=== PATIENT | female | born 1995 | race Caucasian/White ===

== ENCOUNTER 2019-04-23 15:12 | Inpatient (IN) | payer BC, MEDICAID ==
[~2019-04-23] VITALS: Ht 157.5 cm; Wt 49.9 kg
[2019-04-23] MEDS ORDERED: ASPI-84 PO (15:23)
--- NOTE | 2019-04-23 15:30 | NUR ---
RECEVED PT [employer] by mother for elevated temp and lower and lower abdominale pain sterted on 04/19/19 temp 102f blood drow abd sent to lab ua sent to lab
[2019-04-23] MEDS ORDERED: IV NORMAL SALINE 1000 ML BAG IV ONE ×2 (15:45→17:30)
[2019-04-23] MEDS ORDERED: ONDANSETRON 4 MG/2 ML VIAL IV ONE ×2 (16:00→18:45)
[2019-04-23] MEDS ORDERED: MORPHINE SULFATE 4 MG/1 ML DISP.SYRIN IV ONE ×2 (16:00→18:45)
[2019-04-23 16:09] LABS: *BILIRUBIN,URIN NEGATIVE (NEGATIVE); *BLOOD, URINE 1+ (NEGATIVE); *CLARITY,URINE CLOUDY (CLEAR); *COLOR,URINE YELLOW (YELLOW); *KETONES,URINE NEGATIVE (NEGATIVE); *UROBILINOGEN,URINE 0.2 E.U./dl (NORMAL); BASOPHILS # (AUTO) 0.1 K/uL (0.0-8.0); BASOPHILS % (AUTO) 0.3 % (0.0-2.0); EOSINOPHILS % (AUTO) 0.2 % (0.0-7.0); HEMOGLOBIN 12.1 g/dL (10.9-14.3); LEUKOCYTE ESTERASE ,URINE 3+ (NEGATIVE); LYMPHOCYTES # (AUTO) 1.9 K/uL (20.0-40.0); LYMPHOCYTES % (AUTO) 11.1 % (20.5-51.5); MEAN CORPUSCULAR HEMOGLOBIN 29.7 uug (24.7-32.8); MEAN CORPUSCULAR HGB CONC 33 g/dL (32.3-35.6); MEAN CORPUSCULAR VOLUME 90.9 fL (75.5-95.3); MONOCYTES # (AUTO) 2.4 K/uL (2.0-10.0); NEUTROPHILS # (AUTO) 12.8 K/uL (1.8-8.9); NEUTROPHILS % (AUTO) 74.4 % (38.5-71.5); NITRITE, URINE POSITIVE (NEGATIVE); PH,URINE 6.5 (5.0-8.0); PLATELET COUNT (AUTO) 305 K/uL (179-408); RED BLOOD CELL COUNT(AUTO) 4.07 MIL/uL (3.63-4.92); UGLUCOSE NEGATIVE (NEGATIVE); WHITE BLOOD COUNT (AUTO) 17.1 K/uL (3.8-11.8)
[2019-04-23 16:12] LABS: *URINE HCG, QUAL NEGATIVE (NEGATIVE)
[2019-04-23 16:17] LABS: BACTERIA,URINE MANY /HPF (NONE SEEN); CREATININE 0.9 mg/dL (0.6-1.3); POTASSIUM 2.9 mmol/L (3.5-5.1); SQUAMOUS EPITHELIAL CELL,UR MANY /HPF (NONE SEEN); WBC,URINE 80-100 /HPF (0-3)
[2019-04-23 16:22] LABS: BILIRUBIN,DIRECT 0.1 mg/dL (0.0-0.2); BILIRUBIN,TOTAL 0.3 mg/dL (0.2-1.0); TOTAL PROTEIN, SERUM 7.2 g/dL (6.4-8.2)
--- NOTE | 2019-04-23 16:30 | NUR ---
c/o abdominal pain 11/16 morphin 4mg and zofran 4mg ivp given ivf ns infused and patent
[2019-04-23] MEDS ORDERED: MORPHINE SULFATE 4 MG/1 ML DISP.SYRIN ONE ×2 (16:34→19:11)
[2019-04-23] MEDS ORDERED: ONDANSETRON 4 MG/2 ML VIAL ONE ×2 (16:35→19:11)
[2019-04-23] MEDS ORDERED: CEFTRIAXONE 1 G in IV DEXTROSE 5% 50 ML IV ONE (16:45)
[2019-04-23] MEDS ORDERED: POTASSIUM BICARBONATE/CIT AC 25 MEQ TABLET.EFF PO ONE (17:15)
--- NOTE | 2019-04-23 17:30 | NUR ---
pt dx uti blood culture x 2 blood drow by lab rocephin 1 gm ivpb infused and patent tem 99.0f
[2019-04-23] MEDS ORDERED: CEFTRIAXONE /D5W 50ML IVPB **ER PYXIS IV ONE (17:38)
[2019-04-23] MEDS ORDERED: POTASSIUM BICARBONATE/CIT AC 25 MEQ TABLET.EFF ONE (17:46)
[2019-04-23] MEDS ORDERED: LEVOFLOXACIN 750 MG/D5W 150 ML PIGGYBACK IV ONE (18:00)
--- NOTE | 2019-04-23 18:30 | NUR ---
2 nd liter infused and patent
--- NOTE | 2019-04-23 18:30 | NUR ---
patient received from ER on [facility]. no signs of acute distress and v/s stable other then temperature. ID band on and belonging list completed. will continue admissions process and continue to monitor. Addendum: 04/24/19 at 0059 by ANANDA DOE RN correct time 2030
[2019-04-23] MEDS ORDERED: LEVOFLOXACIN 750MG/D5W 150 ML IV ONE (19:08)
--- NOTE | 2019-04-23 19:53 | NUR ---
report given to CATHLEEN Graff
--- NOTE | 2019-04-23 20:10 | NUR ---
patient transfered to [facility] floor via [facility] with RN, Souyma Sprague. patient alert and oriented and in stable condition.
[2019-04-23 20:22] VITALS: BP 106/62
[2019-04-23] MEDS ORDERED: Z GUARD REMEDY PASTE 57 GM TUBE TOP PRN (20:45)
[2019-04-23] MEDS ORDERED: ONDANSETRON 4 MG/2 ML VIAL IV PRN (20:45)
[2019-04-23] MEDS ORDERED: ACETAMINOPHEN 325 MG TABLET PO PRN (20:45)
[2019-04-23] MEDS ORDERED: MAGNESIUM HYDROXIDE 30 ML LIQUID UDC PO PRN (20:45)
[2019-04-23] MEDS ORDERED: ZOLPIDEM 5 MG TABLET PO PRN (20:45)
[2019-04-23] MEDS ORDERED: HYDROCODONE/APAP 5-325MG TABLET PO PRN (20:45)
[2019-04-23] MEDS ORDERED: IBUPROFEN 400 MG TABLET PO PRN (20:45)
[2019-04-23] MEDS ORDERED: TRAMADOL HCL 50 MG TABLET PO PRN (21:45)
[2019-04-23] MEDS: IV NS 1000 ML 1,000 ML IV PRN (21:48)
--- NOTE | 2019-04-23 21:48 | NUR ---
patient temperature at 100.2, administered tylenol. will f/u.
--- NOTE | 2019-04-23 22:20 | NUR ---
patient report that norco makes her nauseated. maxi placed new order for tramadol for pain management. will administer.
--- NOTE | 2019-04-23 22:48 | NUR ---
patient temperature decreasing and currently at 99.1 will continue to monitor and continue plan of care.
--- NOTE | 2019-04-23 23:35 | NUR ---
patient reported numbness, tingling, and burning sensation on bilateral feet due to her autoimmune disease. janette denton np ordered lidocaine patch for bilateral feet. will apply.
[2019-04-23] MEDS ORDERED: LIDOCAINE 5% PATCH TD SCH (23:45)
--- NOTE | 2019-04-23 23:48 | NUR ---
recheck patient temperature and it is at 98.0
[2019-04-24] MEDS ORDERED: LIDOCAINE 5% PATCH TD SCH
[2019-04-24 05:00] VITALS: BP 101/68
--- NOTE | 2019-04-24 05:23 | NUR ---
patient received in bed. no signs of acute distress noted and v/s stable at this time. c/o of insomnia and Ambien administered. c/o of pain and tramadol administered. tolerated well. afebrile at this time. will continue plan of care and endorse accordingly.
[2019-04-24] MEDS: IV NS 1000 ML 1,000 ML IV PRN (05:43)
--- NOTE | 2019-04-24 07:30 | NUR ---
Patient received in bed expressing dissatisfaction with not being able to speak to physician ; patient informed physician would come and do her rounds soon. Patient with no signs of distress; will continue to be monitored.
[2019-04-24 08:10] LABS: BASOPHILS % (AUTO) 0.2 % (0.0-2.0); EOSINOPHILS % (AUTO) 0.3 % (0.0-7.0); HEMATOCRIT 32.1 % (31.2-41.9); HEMOGLOBIN 10.5 g/dL (10.9-14.3); LYMPHOCYTES # (AUTO) 1.2 K/uL (20.0-40.0); LYMPHOCYTES % (AUTO) 8.4 % (20.5-51.5); MEAN CORPUSCULAR HEMOGLOBIN 29.4 uug (24.7-32.8); MEAN CORPUSCULAR HGB CONC 33 g/dL (32.3-35.6); MEAN CORPUSCULAR VOLUME 89.7 fL (75.5-95.3); MONOCYTES # (AUTO) 1.8 K/uL (2.0-10.0); MONOCYTES % (AUTO) 13.1 % (0.0-11.0); NEUTROPHILS # (AUTO) 10.8 K/uL (1.8-8.9); PLATELET COUNT (AUTO) 278 K/uL (179-408); RED BLOOD CELL COUNT(AUTO) 3.58 MIL/uL (3.63-4.92); WHITE BLOOD COUNT (AUTO) 13.9 K/uL (3.8-11.8)
[2019-04-24 08:14] LABS: CARBON DIOXIDE 29 mmol/L (21-32); CHLORIDE 105 mmol/L (98-107); CHOLESTEROL 88 mg/dL (<200); CREATININE 0.7 mg/dL (0.6-1.3); GLUCOSE 85 mg/dL (74-106); MAGNESIUM 1.8 mg/dL (1.8-2.4); PHOSPHOROUS 2.7 mg/dL (2.5-4.9); POTASSIUM 3.8 mmol/L (3.5-5.1); TRIGLYCERIDES 120 MG/DL (30-150); UREA NITROGEN, BLOOD 4 mg/dL (7-18)
[2019-04-24 08:34] LABS: HDL CHOLESTEROL < 10 mg/dL (40-60)
--- NOTE | 2019-04-24 09:00 | NUR ---
Patient left AMA stating she wanted to speak to physician immediately and stating that she could be at home on a Friday ; Patient requested sign AMA form; patient left in stable condition with no signs of distress; patient accompanied by mother and left private car. Patient educated on antibiotic therapy and diagnosis of sepsis ; patient still no compliant with medical advice and decided to leave AMA.
[2019-04-24] MEDS ORDERED: CEFTRIAXONE 1 G in IV DEXTROSE 5% 50 ML IV SCH (17:00)
[2019-04-24] MEDS ORDERED: LEVOFLOXACIN 750MG/D5W 750 MG in PREMIXED 1 EACH IV SCH (18:00)
== END 2019-04-24 09:05 | disposition left against medical advice (07) | DRG 872 ==
LOC: ER 15:12 → MEDSURG3 19:45
PROVIDERS: ADMIT Nurse Practitioner Acute Care; ATTEND Nurse Practitioner Acute Care
DX: A41.9 Sepsis, unspecified organism (principal); N12 Tubulo-interstitial nephritis, not specified as acute or chronic; E87.1 Hypo-osmolality and hyponatremia; E44.0 Moderate protein-calorie malnutrition; B96.20 Unspecified Escherichia coli [E. coli] as the cause of diseases classified elsewhere; E87.6 Hypokalemia; E86.0 Dehydration; Z68.20 Body mass index [BMI] 20.0-20.9, adult; M35.9 Systemic involvement of connective tissue, unspecified; Z79.52 Long term (current) use of systemic steroids; N20.0 Calculus of kidney; K76.0 Fatty (change of) liver, not elsewhere classified
CPT/HCPCS: 36415; 83605; 83735; 84100; 84703; 85025; 87040; 87077; 87086; A4663; G0378; J0696; J1956; J2270; J2405; J7030